=== PATIENT | female | born 2000 | race Caucasian/White ===

== ENCOUNTER 2023-06-06 06:27 | Emergency (ER) | payer OTHER, SELFPAY ==
--- NOTE | ~2023-06-06 | XR_ITS ---
EXAMINATION: XR ankle RT min 3V DATE: 06/06/2023 06:50 INDICATION: Right ankle pain and edema. TECHNIQUE: 4 views of right ankle were obtained. COMPARISON: None. FINDINGS: Bone alignment is normal. No fracture. Joint spaces are normal. IMPRESSION: 1. No fracture. Reviewed, dictated and finalized at location A. IMPRESSION: 1. No fracture.
[2023-06-06 06:31] VITALS: BP 141/87; PULSE 85; RESP 18; TEMP 36.8; O2SAT 100
--- NOTE | 2023-06-06 07:18 | ED.LOWEXIN ---
HPI - Extremity Injury (Lower) General Chief Complaint: Extremity Injury, Lower Stated Complaint: right ankle pain Time Seen by Provider: 06/06/23 07:00 Source: patient and RN notes reviewed Mode of arrival: ambulatory Limitations: no limitations History of Present Illness HPI Narrative: This is a 23 year old female who presents for evaluation of right ankle pain. Patient states she has weak ankles and last night she rolled her right ankle last night. She reports having right ankle swelling and pain with bearing weight. She took tylenol for her pain last night and she does not think it helped her pain. She is on celebrex for joint pain. She has not taken any medication for pain last night. Related Data Allergies Allergy/AdvReac Type Severity Reaction Status Date / Time cyclobenzaprine AdvReac Other Verified 06/06/23 06:33 [From Flexeril] Review of Systems Review of Systems: All systems reviewed & are unremarkable except as noted in HPI and below PMFSH Past Medical History Medical History Arthritis Social History Social History Smoking status: Never smoker Exam Const: General: no acute distress and alert Nutritional Appearance: well nourished Orientation/consciousness: patient oriented x3 HENMT: Head: normal to inspection Eyes: EOM: EOMs intact bilaterally Resp: Effort & Inspection: normal respiratory effort Skin: General skin exam: normal color Rashes: no rashes Wounds: no wounds Neuro: General: patient oriented x3, moves all extremities and CN's II-XI intact bilaterally Extrem: General: no clubbing, cyanosis or edema Other: right ankle- no swelling, no bruising. She reports pain to right lateral malleolus Psych: Mental Status: mental status grossly normal Affect: normal affect Attitude: cooperative Course Reevaluation(s) Reevaluation #1: Patient already has medication for pain. She has lala bandage from home. She would like crutches for discharge and she will follow up with orthopedic surgeon. Date: 06/06/23 Time: 07:23 Vital Signs Vital signs: Vital Signs Temperature 98.2 F 06/06/23 06:31 Pulse Rate 85 06/06/23 06:31 Respiratory Rate 18 06/06/23 06:31 Blood Pressure 141/87 H 06/06/23 06:31 Pulse Oximetry 100 06/06/23 06:31 Oxygen Delivery Room Air 06/06/23 06:31 Temperature 98.2 F 06/06/23 06:31 Pulse Rate 85 06/06/23 06:31 Respiratory Rate 18 06/06/23 06:31 Blood Pressure 141/87 H 06/06/23 06:31 Pulse Oximetry 100 06/06/23 06:31 Oxygen Delivery Room Air 06/06/23 06:31 Discharge Plan Discharge Clinical Impression: Right ankle sprain Qualifiers: Encounter type: initial encounter Patient Disposition: Home, Self-Care Condition: Stable Instructions: Antibiotic Form, Ankle Sprain (ED), Crutch Instructions (ED) Additional Instructions: Please read discharge instructions. Follow up with your orthopedic surgeon or primary care provider if pain does not improve in 1 week. Follow-up/Referrals: PHYSICIAN NOT ON STAFF,NONSTAFF [Primary Care Provider] -
== END 2023-06-06 07:39 | disposition home or self-care (01) ==
PROVIDERS: Emergency Provider General Practice
DX: S93.401A Sprain of unspecified ligament of right ankle, initial encounter (principal); X50.9XXA Other and unspecified overexertion or strenuous movements or postures, initial encounter
CPT/HCPCS: 73610; 99283